=== PATIENT | female | born 1945 | race Caucasian/White ===

== ENCOUNTER → 2018-04-30 | Outpatient (CLI) | payer MEDICARE, BC | LOC: MC.RAD 04-22 10:00 | DX: Z12.31 Encounter for screening mammogram for malignant neoplasm of breast (principal) ==

== ENCOUNTER 2020-12-15 00:50 | Inpatient (IN) | payer MEDICARE, BC ==
[~2020-12-15] VITALS: Ht 154.9 cm; Wt 52.3 kg
[2020-12-15] VITALS (10 sets, daily range): BP systolic 90–129; BP diastolic 36–88; PULSE 80–89; TEMP 97.7–98.9
[2020-12-15] MEDS ORDERED: OCUVITE1 TA1 PO (00:59)
[2020-12-15 02:13] LABS: BASO % 0.3 % (0.0-2.0); EOS # 0.1 (0.0-0.7); EOS % 0.4 % (0-4.0); GRAN # 12.2 (1.4-6.5); GRAN % 81.1 % (42.2-75.2); LYMPH # 1.8 (1.2-3.4); LYMPH % 12.2 % (20.0-51.0); MEAN CELL VOLUME 94 fl (80.0-100.0); MEAN CORPUSCULAR HEMOGLOBIN 31 pg (27.0-31.0); MEAN CORPUSCULAR HGB CONC 33 g/dl (33.0-37.0); MEAN PLATELET VOLUME 9.8 fl (7.4-10.4); MONO # 0.8 (0.1-0.6); MONO % 5.1 % (1.7-9.3); PLATELET COUNT 254 K/mm3 (130-400); RED BLOOD COUNT 3.55 M/mm3 (4.10-5.30); REDCELL DISTRIBUTION WIDTH-CV 12.7 % (11.5-14.5)
[2020-12-15 02:17] LABS: HEMATOCRIT 33.4 % (37.0-47.0)
[2020-12-15 02:23] LABS: INR 1.1 (0.8-3.0); PROTHROMBIN TIME 11.8 SECONDS (9.7-12.8)
[2020-12-15 02:24] LABS: ALBUMIN 3.8 gm/dL (3.5-5.0); BILIRUBIN,TOTAL 0.5 mg/dL (0.0-1.0); CALCIUM 8.8 mg/dL (8.4-10.2); CREATININE, serum 0.61 (0.52-1.25); POTASSIUM 4.4 mmol/L (3.4-5.0); TOTAL PROTEIN 6.8 gm/dL (6.4-8.2)
[2020-12-15 02:25] LABS: PARTIAL THROMBOPLASTIN TIME 26.3 SECONDS (26.0-37.0)
[2020-12-15 02:39] LABS: COLLECTION METHOD IN
[2020-12-15 02:44] LABS: MUCOUS Present /lpf; PH 5 (5-8); SQUAMOUS EPITHELIAL 0-2 /hpf; URINE APPEARANCE Hazy; URINE BACTERIA Rare /hpf; URINE BILIRUBIN Negative (NEGATIVE); URINE BLOOD Negative (NEGATIVE); URINE COLOR Yellow; URINE GLUCOSE Negative (NEGATIVE); URINE KETONE Negative (NEGATIVE); URINE LEUKOCYTE ESTERASE Negative (NEGATIVE); URINE NITRATE Negative (NEGATIVE); URINE PROTEIN(semi-quant) Negative (NEGATIVE); URINE RBC 0-2 /hpf; URINE UROBILINOGEN Negative (NEGATIVE)
[2020-12-15 04:33] LABS: IRON,SERUM 83 ug/dL (35-150)
[2020-12-15 04:49] LABS: TOTAL IRON BINDING CAPACITY 243 ug/dL (265-497)
--- NOTE | 2020-12-15 12:14 | NUR ---
Sw met with Pt who stated her preference to return home VS out patient rehab once she is medically stable. The pt lives at home alone (). The next of kin to contact his her son, Junior Preciado. The pt has [facility]-[facility], Son, Junior. The pt is independpent on all ADLS and does not use any DME. The pt pcp is loyd Ramey and she gets her medications from [facility] and has no trouble obtaining them. No other needs stated at this time. Sw to await further recommendations and follow up as needed. D/c: HOME
--- NOTE | 2020-12-15 20:00 | NUR ---
Report received, assumed care for night baker. Assessment complete. A&Ox3-drowsy. Denies nausea/shortness of breath. PO vitals stable. Noted to be slightly hypotensive-asymptomatic. Patient states "I always run low." NS@75ml/hr to left forearm IV. Dressing to left hip-gauze/tegaderm x3-CDI. Fresh ice pack applied. Barreto cath with clear yellow urine. TEDs/SCDs bilat. Plan of care discussed for this shift to include bedrest per dr order/pain control/ice/calling for questions/concerns. Verbalizes understanding/denies needs. Call light in reach. Will monitor.
[2020-12-16 00:07] VITALS: BP 111/36; PULSE 84; TEMP 98.4
--- NOTE | 2020-12-16 04:00 | NUR ---
Rested well this shift. Dressings to left hip still CDI. Fresh ice packs applied. Has not tolerated a lot of PO-NS@75mls/hr infusing without difficulty. Barreto cath with clear yellow urine. SCD/JUSTA bilat. IS given with teaching-used appropriately. Denies current needs. Call light in reach. Will monitor.
[2020-12-16 04:27] VITALS: BP 103/33; PULSE 85; TEMP 99.8
--- NOTE | 2020-12-16 06:10 | NUR ---
Dr Montgomery at bedside.
[2020-12-16 06:56] LABS: BASO % 0.4 % (0.0-2.0); EOS # 0.2 (0.0-0.7); GRAN # 4.5 (1.4-6.5); GRAN % 59.6 % (42.2-75.2); LYMPH # 2.1 (1.2-3.4); LYMPH % 27.4 % (20.0-51.0); MEAN CELL VOLUME 96 fl (80.0-100.0); MEAN CORPUSCULAR HGB CONC 32 g/dl (33.0-37.0); MEAN PLATELET VOLUME 9.4 fl (7.4-10.4); MONO # 0.8 (0.1-0.6); MONO % 10.1 % (1.7-9.3); PLATELET COUNT 177 K/mm3 (130-400); RED BLOOD COUNT 2.55 M/mm3 (4.10-5.30); REDCELL DISTRIBUTION WIDTH-CV 12.4 % (11.5-14.5)
[2020-12-16 07:00] LABS: HEMATOCRIT 24.4 % (37.0-47.0); HEMOGLOBIN 7.7 g/dl (12.5-16.0); MEAN CORPUSCULAR HEMOGLOBIN 30 pg (27.0-31.0)
[2020-12-16 07:12] LABS: CALCIUM 7.8 mg/dL (8.4-10.2); CREATININE, serum 0.56 (0.52-1.25); POTASSIUM 3.8 mmol/L (3.4-5.0)
[2020-12-16 07:43] VITALS: BP 101/36; PULSE 80; TEMP 98.8
--- NOTE | 2020-12-16 10:01 | NUR ---
PT RESTING IN BED. COMPLETED THERAPY THIS AM. IN TO SEE PT. DRESSING CHANGE COMPLETED BY PHYSICIAN. VSS. PT UP TO BR NEEDED. DRESSINGS TO RIGHT HIP CDI.
--- NOTE | 2020-12-16 10:52 | NUR ---
Sw met with the pt to discuss the recommendations from PT. The pt stated she is okay going home without HH services, because she has family support, but if she needs it she will contact case management to get it set up. No other needs stated. D/c: Home with family support
[2020-12-16 12:00] VITALS: BP 120/37; PULSE 81; TEMP 98.4
[2020-12-16] MEDS ORDERED: NORCO 325 MG-7.1 TAB PO ×2 (12:29)
[2020-12-16 15:16] LABS: HEMATOCRIT 24.5 % (37.0-47.0); HEMOGLOBIN 7.9 g/dl (12.5-16.0)
--- NOTE | 2020-12-16 15:42 | NUR ---
FLOEY CATHETER DISCONTINUED PER ORDERS.
[2020-12-16 16:18] VITALS: BP 116/35; PULSE 85; TEMP 98.8
[2020-12-16 20:03] VITALS: BP 121/39; PULSE 89; TEMP 98.7
[2020-12-17 00:12] VITALS: BP 116/40; BP 99/44; PULSE 112; PULSE 85; TEMP 98.8; TEMP 99.5
[2020-12-17 02:51] VITALS: BP 118/39; PULSE 83; TEMP 99.4
[2020-12-17 06:28] LABS: MEAN CELL VOLUME 96 fl (80.0-100.0); MEAN CORPUSCULAR HGB CONC 32 g/dl (33.0-37.0); PLATELET COUNT 188 K/mm3 (130-400); RED BLOOD COUNT 2.52 M/mm3 (4.10-5.30); REDCELL DISTRIBUTION WIDTH-CV 12.2 % (11.5-14.5)
[2020-12-17 06:33] LABS: HEMATOCRIT 24.2 % (37.0-47.0); HEMOGLOBIN 7.8 g/dl (12.5-16.0); MEAN CORPUSCULAR HEMOGLOBIN 31 pg (27.0-31.0)
--- NOTE | 2020-12-17 06:45 | NUR ---
awake resting in bed, bedside shift report received from CHARLES Paulino
[2020-12-17 06:46] LABS: CREATININE, serum 0.57 (0.52-1.25); POTASSIUM 3.7 mmol/L (3.4-5.0)
--- NOTE | 2020-12-17 08:15 | NUR ---
had breakfast and tolerated well, full assessment completed, see interventions for further info, denies need for pain medication at this time, requesting to take a shower
[2020-12-17 08:17] VITALS: BP 103/31; PULSE 96; TEMP 98.4
--- NOTE | 2020-12-17 08:59 | NUR ---
occupational therapy in and assisting her with taking a shower
--- NOTE | 2020-12-17 09:37 | NUR ---
physical therapy in to work with patient, assisted out of bed and ambulated and now into chair
--- NOTE | 2020-12-17 10:45 | NUR ---
Dr Hull and care team in to see patient, will plan discharge later today
[2020-12-17] MEDS ORDERED: ASPIRIN 32325 MG/TAB PO (10:47)
[2020-12-17] MEDS ORDERED: ULTRAM 50MG TAB50 MG PO (10:49)
[2020-12-17] MEDS ORDERED: NATURAL IRON65 MG PO (10:55)
[2020-12-17 11:08] VITALS: BP 125/30; PULSE 89; TEMP 98.5
--- NOTE | 2020-12-17 11:16 | NUR ---
First visit from the facility specialist. No needs right now.
--- NOTE | 2020-12-17 12:15 | NUR ---
discharge instructions given to patient, verbalizes understanding
--- NOTE | 2020-12-17 13:05 | NUR ---
discharged per WC
== END 2020-12-17 13:06 | disposition home or self-care (01) | DRG 482 ==
LOC: COL.ER 00:50 → SURG 02:22
PROVIDERS: Emergency Medicine; Orthopaedic Surgery; Physician Assistant; Student in an Organized Health Care Education/Training Program; ADMIT Family Medicine
PROC: 0QS734Z Reposition Left Upper Femur with Internal Fixation Device, Percutaneous Approach (ICD-10-PCS; principal; 2020-12-15 14:00)
DX: S72.142A Displaced intertrochanteric fracture of left femur, initial encounter for closed fracture (principal); W18.39XA Other fall on same level, initial encounter; Z66 Do not resuscitate; D64.9 Anemia, unspecified; D72.829 Elevated white blood cell count, unspecified; Z96.652 Presence of left artificial knee joint; R73.9 Hyperglycemia, unspecified; Y93.89 Activity, other specified; Y92.9 Unspecified place or not applicable
CPT/HCPCS: 99232-AI; 99239; A9284; C1713; C1769; J0690; J1170; J1885; J2250; J2370; J2405; J2704; J3010; J7030; J7050

== ENCOUNTER → 2021-10-04 | Outpatient (CLI) | payer MEDICARE, BC ==
[~2021-10-04] MED LIST: ASPIRIN 32325 MG/TAB PO; NATURAL IRON65 MG PO; NORCO 325 MG-7.1 TAB PO; OCUVITE1 TA1 PO; ULTRAM 50MG TAB50 MG PO
== END ==
LOC: MC.RAD 08:56
DX: Z12.31 Encounter for screening mammogram for malignant neoplasm of breast (principal)

== ENCOUNTER → 2021-10-06 | Outpatient (CLI) | payer MEDICARE, BC | LOC: COL.RAD 09:08 | DX: M48.061 Spinal stenosis, lumbar region without neurogenic claudication (principal); M89.38 Hypertrophy of bone, other site; M43.17 Spondylolisthesis, lumbosacral region; M48.07 Spinal stenosis, lumbosacral region; M51.27 Other intervertebral disc displacement, lumbosacral region; M51.26 Other intervertebral disc displacement, lumbar region ==